=== PATIENT | male | born 1990 | race African-American/Black ===

== ENCOUNTER 2018-03-09 11:26 | Emergency (ER) | payer OTHER ==
[~2018-03-09] VITALS: Ht 172.7 cm; Wt 72.6 kg
[~2018-03-09 11:26] MED LIST: CYCLOBENZAPRINE5 MG PO; DOXYCYCLINE 10100 MG PO; FLEXERIL PO; IBUPROFEN 800800 M1 PO; IBUPROFEN 800800 MG PO; ULTRAM 50MG TAB50 MG PO
[2018-03-09 12:59] VITALS: BP 130/79
--- NOTE | 2018-03-09 13:26 | EKG ---
[address] [place] [address] ELECTROCARDIOGRAM REPORT Name: MICHEL NICKERSON Room [facility] [id number] Admission: 03/09/18 Attend Phys: Discharge: Date of : 89 Report #: [id number] THIS REPORT FOR: //name// [facility] ED Test Date: 2018-03-09 Test Time: 11:33:52 Pat Name: MICHEL NICKERSON Department: Room: Gender: Door Patcher: JOSE LWill : 1990 Requested By: Mario Fischer Order Number: [id number] MD: Mickey Babb Measurements Intervals [place] Rate: 82 P: 64 OH: 112 QRS: 44 QRSD: 87 T: 22 QT: 364 QTc: 425 Interpretive Statements Sinus rhythm Borderline short [place] interval Compared to ECG 10/10/2011 14:01:05 No significant changes Electronically Signed On 03-09-2018 13:26:21 PSYCHIATRIC ORDERLY by Mickey Babb [email or web address] <ELECTRONICALLY SIGNED> By: Mickey Babb MD 03/09/18 1326 1133 1133 Mickey Babb MD /LATONYA
== END 2018-03-09 13:33 | disposition home or self-care (01) ==
LOC: ER 11:26
DX: F41.9 Anxiety disorder, unspecified (principal); R07.89 Other chest pain; Z91.041 Radiographic dye allergy status